=== PATIENT | male | born 1995 | race Asian ===

== ENCOUNTER 2020-06-20 09:51 | Emergency (ER) | payer SELFPAY ==
[2020-06-20 10:00] VITALS: BP 105/68; PULSE 65; TEMP 98.4; BMI 22.3
--- NOTE | 2020-06-20 10:14 | PDOC ---
History of Present Illness - General Chief Complaint: Blood/Body Fluid Exposure [facility] [employer] Stated Complaint: FINGER STICK Time Seen by Provider: 06/20/20 10:11 Past History - Medical History Allergies/Adverse Reactions: Allergies Allergy/AdvReac Type Severity Reaction Status Date / Time No Known Allergies Allergy Verified 06/20/20 10:00 Home Medications: Ambulatory Orders NK [No Known Home Medication] 06/20/20 COPD: No - Immunization History Immunization Up to Date: Yes - Psycho-Social/Smoking History Smoking History: Never smoked Have you smoked in the past 12 months: No Information on smoking cessation initiated: No - Substance Abuse Hx (Audit-C & DAST Scrn) How often the patient has a drink containing alcohol: Never Score: In Men: 4 or > Positive; In Women: 3 or > Positive: 0 Screen Result (Pos requires Nsg. Audit-10AR): Negative In the last yr the pt used illegal drug/Rx for NonMed reason: No Score: Yes response is considered Positive: 0 Screen Result (Positive result requires Nsg. DAST-10): Negative *Physical Exam - Vital Signs Last Vital Signs Temp Pulse Resp BP Pulse Ox 98.4 F 65 18 105/68 98 06/20/20 09:56 06/20/20 09:56 06/20/20 09:56 06/20/20 09:56 06/20/20 09:56 - Physical Exam General Appearance: Yes: Appropriately Dressed. No: Apparent Distress Integumentary: positive: Dry, Warm, Other (pinpoint abrasion to volar aspect of distal phalanx of R thumb) Neurologic: positive: Fully Oriented, Alert, Normal Mood/Affect Medical Decision Making - Medical Decision Making 06/20/20 10:27 24 yo M, works as a pharmacy technician at [employer] and states newly opened needle pt was using to withdraw fentanyl accidentally struck L thumb. Did not inject meds into himself per pt. Needle was not used on a patient. Pt's tetanus UTD. No intervention needed in ED. Dc Discharge - Discharge Information Problems reviewed: Yes Clinical Impression/Diagnosis: Needle stick injury Condition: Good Disposition: HOME - Follow up/Referral - Patient Discharge Instructions Additional Instructions: As you were stuck with a clean needle not used on a patient, this needle stick injury gama snot constitute a true exposure No intervention needed in ED - Post Discharge Activity Work/Back to School Note: Back to Work
== END 2020-06-20 10:24 | disposition home or self-care (01) ==
LOC: JERFT 09:51
DX: S61.032A Puncture wound without foreign body of left thumb without damage to nail, initial encounter (principal); W46.1XXA Contact with contaminated hypodermic needle, initial encounter
CPT/HCPCS: 99282-25